=== PATIENT | male | born 2000 | race African-American/Black ===

== ENCOUNTER 2021-03-10 08:55 | Inpatient (IN) | payer OTHER ==
[2021-03-10 09:44] LABS: Basophils % (A) 1 %; Eosinophils # (A) 0.1 k/uL (0-0.7); Eosinophils % (A) 1 %; HCT 46.1 % (39.0-53.0); HGB 15.7 gm/dL (13.0-17.5); Lymphocytes # (A) 1.9 k/uL (1.0-4.8); Lymphocytes % (A) 28 %; MCH 30.8 pg (25.0-35.0); MCV 90.7 fL (80.0-100.0); Mean Platelet Volume 8.5; Monocytes # (A) 0.3 k/uL (0-1.0); Monocytes % (A) 5 %; Neutrophils # (A) 4.2 k/uL (1.3-7.7); Neutrophils % (A) 64 %; Platelet Count 222 k/uL (150-450); RBC 5.08 m/uL (4.30-5.90); RDW 12.3 % (11.5-15.5); WBC 6.6 k/uL (3.8-10.6)
[2021-03-10 10:02] LABS: Acetaminophen <10.0 ug/mL; African American GFR (CKD) >90 (>60 ml/min/1.73 sqM); Alcohol <10 mg/dL; Anion Gap 7 mmol/L; Blood Urea Nitrogen 18 mg/dL (9-20); Calcium 9.8 mg/dL (8.4-10.2); Carbon Dioxide 27 mmol/L (22-30); Chloride 103 mmol/L (98-107); Glucose 101 mg/dL (74-99); Magnesium 1.9 mg/dL (1.6-2.3); Non-African American GFR(CKD) >90 (>60 ml/min/1.73 sqM); Potassium 3.9 mmol/L (3.5-5.1); Salicylate <1.0 mg/dL; Sodium 137 mmol/L (137-145)
[2021-03-10] MEDS ORDERED: LORazepam 2 MG/ML INJ IV STA (12:47)
--- NOTE | 2021-03-10 13:42 | ED ---
General Adult HPI - General Chief complaint: Psychiatric Symptoms Stated complaint: mental health Time Seen by Provider: 03/10/21 09:15 Source: police, RN notes reviewed, old records reviewed Mode of arrival: ambulatory - History of Present Illness Initial comments: Patient is a 20-year-old male who presents emergency Department in police custody. He is brought to the emergency department concern for acute psychosis after he was arrested for stealing a car. He currently has no acute complaints but appears to be responding to internal stimuli. Is moving all 4 extremities. He is in handcuffs. Is alert and oriented times approximately 3. Denies any drug use. Refuses to answer most questions. Presents for psychiatric evaluation. Suicidal, homicidal attempts, ideation. Denies any visual or auditory hallucinations. - Related Data Home Medications Medication Instructions Recorded Confirmed No Known Home Medications 03/10/21 03/10/21 Allergies Allergy/AdvReac Type Severity Reaction Status Date / Time No Known Allergies Allergy Unverified 03/10/21 10:21 Review of Systems ROS Statement: Those systems with pertinent positive or pertinent negative responses have been documented in the HPI. Review of Systems: CONST: Denies fever EYES: Denies blurry vision ENT: Denies nasal congestion C/V: Denies Chest pain RESP: Denies shortness of breath GI: Denies abdominal pain : Denies dysuria SKIN: Denies rash. MSK: Denies joint pain. NEURO: Denies headache PSYCH: Denies suicidal and homicidal ideations/plans/attempts. Denies visual or auditory hallucinations. ROS Other: All systems not noted in ROS Statement are negative. Past Medical History Past Psychological History: Unable to Obtain Smoking Status: Unknown if ever smoked Past Alcohol Use History: Unable to Obtain General Exam - General Exam Comments Initial Comments: General: Appears in no acute distress. Appears to be responding to internal stimuli and is evasive of questions. HEAD: Normal with no signs of head trauma. EYES: PERRLA, EOMI, conjunctiva normal, no discharge. Pupils are 3 mm and equal bilaterally. ENT: Hearing grossly intact, normal oropharynx. RESPIRATORY: Clear breath sounds bilaterally. No wheezes, rales, or rhonchi. C/V: Regular rate and rhythm. S1 and S2 auscultated, no edema, peripheral pulses 2+ and intact throughout ABD: Abd is soft, nontender, nondistended EXT: Normal range of motion, no obvious deformity SKIN: No rashes or lesions observed on exposed skin. NEURO: Alert and oriented 4. No focal sensory strength deficits. GCS is 15. Course Vital Signs 03/10/21 09:08 Temperature 97.9 F Pulse Rate 90 Respiratory 18 Rate Blood Pressure 128/88 O2 Sat by Pulse 98 Oximetry Medical Decision Making - Medical Decision Making Based on the patient's presentation and physical exam, I'm concerned for what appears to be acute psychosis, however possible polysubstance abuse with unknown history of psychiatric illness. Patient is not forthcoming with information at this time. Therefore we will obtain basic laboratory studies as well as consult psychiatry for evaluation. ETOH level is 0. UDS and urinalysis are pending at this time. Patient was in agreement this plan. He remains in place custody at this time. Patient's laboratory studies are unremarkable including a negative alcohol level, salicylate level, Tylenol level. Labs otherwise unremarkable. Urine kristina dies are pending at this time. Patient is medically cleared for evaluation by psychiatry. Psychiatry evaluated the patient and requested that we obtain a CT head and addition to the urine studies which was ordered. Psychiatric certification was completed by myself. Patient's CT head showed no obvious acute intracranial process, however there was basilar artery density which could relate to dehydration or intracranial process. They recommended a stat CT angiogram. CT angiogram was completed and revealed no acute intracranial process. No significant stenosis or occlusion. [place] is unremarkable and within normal limits. Urinalysis showed no signs of acute ischemia. There is 1+ ketones any will be admission 1 L fluid bolus. UDS is remarkable for positive marijuana. Psychiatry was able to contact the patient's history, and there is concern for polysubstance abuse is likely, contributed to his acute mental status. At this time patient is medical cleared for psychiatric admission. Circumflex was completed by myself. Patient was admitted to psychiatry in stable cond ition. - Lab Data Result diagrams: 03/10/21 09:36 03/10/21 09:36 Lab Results 03/10/21 03/10/21 03/10/21 Range/Units 09:36 09:36 09:36 WBC 6.6 (3.8-10.6) k/uL RBC 5.08 (4.30-5.90) m/uL Hgb 15.7 (13.0-17.5) gm/dL Hct 46.1 (39.0-53.0) % MCV 90.7 (80.0-100.0) fL MCH 30.8 (25.0-35.0) pg MCHC 34.0 (31.0-37.0) g/dL RDW 12.3 (11.5-15.5) % Plt Count 222 (150-450) k/uL MPV 8.5 Neutrophils % 64 % Lymphocytes % 28 % Monocytes % 5 % Eosinophils % 1 % Basophils % 1 % Neutrophils # 4.2 (1.3-7.7) k/uL Lymphocytes # 1.9 (1.0-4.8) k/uL Monocytes # 0.3 (0-1.0) k/uL Eosinophils # 0.1 (0-0.7) k/uL Basophils # 0.0 (0-0.2) k/uL Sodium 137 (137-145) mmol/L Potassium 3.9 (3.5-5.1) mmol/L Chloride 103 (98-107) mmol/L Carbon Dioxide 27 (22-30) mmol/L Anion Gap 7 mmol/L BUN 18 (9-20) mg/dL Creatinine 0.92 (0.66-1.25) mg/dL Est GFR (CKD-EPI)AfAm >90 (>60 ml/min/1.73 sqM) Est GFR (CKD-EPI)NonAf >90 (>60 ml/min/1.73 sqM) Glucose 101 H (74-99) mg/dL Calcium 9.8 (8.4-10.2) mg/dL Magnesium 1.9 (1.6-2.3) mg/dL Urine Color Urine Appearance (Clear) Urine pH (5.0-8.0) Ur Specific [place] (1.001-1.035) Urine Protein (Negative) Urine Glucose (UA) (Negative) Urine Ketones (Negative) Urine Blood (Negative) Urine Nitrite (Negative) Urine Bilirubin (Negative) Urine Urobilinogen (<2.0) mg/dL Ur Leukocyte Esterase (Negative) Salicylates <1.0 mg/dL Urine Opiates Screen (NotDetected) Ur Oxycodone Screen (NotDetected) Urine Methadone Screen (NotDetected) Ur Propoxyphene Screen (NotDetected) Acetaminophen <10.0 ug/mL Ur Barbiturates Screen (NotDetected) U Tricyclic Antidepress (NotDetected) Ur Phencyclidine Scrn (NotDetected) Ur Amphetamines Screen (NotDetected) U Methamphetamines Scrn (NotDetected) U Benzodiazepines Scrn (NotDetected) Urine Cocaine Screen (NotDetected) U Marijuana (THC) Screen (NotDetected) Serum Alcohol <10 mg/dL Coronavirus (PCR) Not Detected (Not Detectd) 03/10/21 03/10/21 Range/Units 13:49 13:49 WBC (3.8-10.6) k/uL RBC (4.30-5.90) m/uL Hgb (13.0-17.5) gm/dL Hct (39.0-53.0) % MCV (80.0-100.0) fL MCH (25.0-35.0) pg MCHC (31.0-37.0) g/dL RDW (11.5-15.5) % Plt Count (150-450) k/uL MPV Neutrophils % % Lymphocytes % % Monocytes % % Eosinophils % % Basophils % % Neutrophils # (1.3-7.7) k/uL Lymphocytes # (1.0-4.8) k/uL Monocytes # (0-1.0) k/uL Eosinophils # (0-0.7) k/uL Basophils # (0-0.2) k/uL Sodium (137-145) mmol/L Potassium (3.5-5.1) mmol/L Chloride (98-107) mmol/L Carbon Dioxide (22-30) mmol/L Anion Gap mmol/L BUN (9-20) mg/dL Creatinine (0.66-1.25) mg/dL Est GFR (CKD-EPI)AfAm (>60 ml/min/1.73 sqM) Est GFR (CKD-EPI)NonAf (>60 ml/min/1.73 sqM) Glucose (74-99) mg/dL Calcium (8.4-10.2) mg/dL Magnesium (1.6-2.3) mg/dL Urine Color Yellow Urine Appearance Clear (Clear) Urine pH 6.5 (5.0-8.0) Ur Specific [place] 1.031 (1.001-1.035) Urine Protein Trace H (Negative) Urine Glucose (UA) Negative (Negative) Urine Ketones 1+ H (Negative) Urine Blood Negative (Negative) Urine Nitrite Negative (Negative) Urine Bilirubin Negative (Negative) Urine Urobilinogen 3.0 (<2.0) mg/dL Ur Leukocyte Esterase Negative (Negative) Salicylates mg/dL Urine Opiates Screen Not Detected (NotDetected) Ur Oxycodone Screen Not Detected (NotDetected) Urine Methadone Screen Not Detected (NotDetected) Ur Propoxyphene Screen Not Detected (NotDetected) Acetaminophen ug/mL Ur Barbiturates Screen Not Detected (NotDetected) U Tricyclic Antidepress Not Detected (NotDetected) Ur Phencyclidine Scrn Not Detected (NotDetected) Ur Amphetamines Screen Not Detected (NotDetected) U Methamphetamines Scrn Not Detected (NotDetected) U Benzodiazepines Scrn Not Detected (NotDetected) Urine Cocaine Screen Not Detected (NotDetected) U Marijuana (THC) Screen Detected H (NotDetected) Serum Alcohol mg/dL Coronavirus (PCR) (Not Detectd) Disposition Clinical Impression: Acute psychosis, Encounter for psychiatric assessment, Polysubstance abuse Disposition: ADMITTED IP TO THIS [facility] Condition: Stable Referrals: None,Stated [Primary Care Provider] - 1-2 days
[2021-03-10 14:14] LABS: Appearance,Urine Clear (Clear); Bilirubin,Urine Negative (Negative); Blood,Urine Negative (Negative); Color,Urine Yellow; Glucose,Urine (UA) Negative (Negative); Ketones,Urine 1+ (Negative); Leukocyte Esterase,Urine Negative (Negative); Nitrite,Urine Negative (Negative); PH, Urine 6.5 (5.0-8.0); Protein,Urine Trace (Negative); Specific Gravity,Urine 1.031 (1.001-1.035)
--- NOTE | 2021-03-10 14:19 | CT ---
EXAMINATION TYPE: CT brain wo con DATE OF EXAM: 03/10/2021 COMPARISON: None HISTORY: Altered mental status. CT DLP: 1145.4 mGycm. Automated Exposure Control for Dose Reduction was Utilized. TECHNIQUE: CT scan of the head is performed without contrast. FINDINGS: There is no acute intracranial hemorrhage, mass effect, or midline shift identified. The ventricles and sulci are within normal limits in size. The globes are intact and the visualized sin uses are clear. Cerebellar tonsils are low-lying in position. IMPRESSION: 1. No acute intracranial hemorrhage, mass effect, or midline shift is seen. Basilar artery somewhat d ense which could be related to dehydration. Recommend stat CTA [place] to exclude other etio logies. 2. Low-lying cerebellar tonsils correlate with MRI PRE.
[2021-03-10 14:42] LABS: Amphetamine Screen,Urine Not Detected (NotDetected); Barbiturate Screen,Urine Not Detected (NotDetected); Benzodiazepines Screen,Urine Not Detected (NotDetected); Cocaine Screen,Urine Not Detected (NotDetected); Methadone Screen, Urine Not Detected (NotDetected); Opiate Screen,Urine Not Detected (NotDetected); Oxycodone Screen, Urine Not Detected (NotDetected); Phencyclidine Screen,Urine Not Detected (NotDetected); Tricyclic Antidepressant,Urine Not Detected (NotDetected); Urn Cannabinoid Scrn Detected (NotDetected)
--- NOTE | 2021-03-10 15:46 | CT ---
EXAMINATION TYPE: CT angio head neck DATE OF EXAM: 03/10/2021 HISTORY: Altered mental status. COMPARISON: None. CT DLP: 526 mGycm. Automated Exposure Control for Dose Reduction was Utilized. TECHNIQUE: CTA scan of the head and neck are performed with IV Contrast, patient injected with 65ml mL of Isovue 370, axial images are obtained, coronal and sagittal reformatted images are reviewed. 3D reconstructed images are created on an independent workstation and reviewed. FINDINGS: Carotid/Vascular Structures: Normal 3 vessel origin from aortic arch without significant plaque or st enosis. Normal origin right common carotid artery from right brachiocephalic artery. No significant p laque or stenosis in common or internal carotid arteries bilaterally including at the level of the ca rotid bulbs. Patent external carotid arteries bilaterally without significant stenosis. There are codominant vertebral arteries patent to basilar junction. There is no significant focal radhames nosis or aneurysm in the posterior circulation. There are patent bilateral posterior communicating ar teries are thought present. Images in the anterior circulation show patent anterior communicating art carline. There is some tortuosity to the anterior cerebral arteries bilaterally. There is no significant aneurysm or stenosis. Other: Patient has very little intra-abdominal fat making evaluation of neck structures suboptimal. P atent airway is seen. Visualized lungs are clear. IMPRESSION: No significant stenosis in common or internal carotid arteries bilaterally. No significa nt stenosis or aneurysm at the level of the [place]. NASCET criteria was used in interpretation of this exam?
[2021-03-10] MEDS ORDERED: SODIUM CHLORIDE 0.9% 1,000 ML IV STA (15:58)
[2021-03-10] MEDS ORDERED: MAG HYDROX/AL HYDROX/SIMETH 30 ML CUP PO PRN (18:05)
[2021-03-10] MEDS ORDERED: MAGNESIUM HYDROXIDE 2,400 MG/10 ML CUP PO PRN (18:05)
[2021-03-10] MEDS ORDERED: ACETAMINOPHEN TAB 325 MG TAB PO PRN (18:05)
[2021-03-10] MEDS ORDERED: LORazepam 2 MG/ML INJ IM PRN (18:07)
[2021-03-10] MEDS ORDERED: HALOPERIDOL LACTATE 5 MG/ML 1 ML VIAL IM PRN (18:07)
[2021-03-10] MEDS: LORazepam 1 MG TAB PO PRN (21:38)
[2021-03-10] MEDS: haloperidoL 5 MG TAB PO PRN (21:38)
[2021-03-10] MEDS: chlorproMAZINE 25 MG/ML 2 ML AMP IM PRN (22:09)
[2021-03-10] MEDS: NICOTINE 14MG/24HR PATCH TRANSDERM SCH (22:09)
--- NOTE | 2021-03-10 23:39 | P.PN ---
Progress Note - Text Progress Note Date: 03/10/21 Attempted to see the patient at 2100. The patient was actively psychotic and inappropriate for evaluation.
[2021-03-11] MEDS: NICOTINE 14MG/24HR PATCH TRANSDERM SCH (08:57)
[2021-03-11] MEDS: chlorproMAZINE 25 MG/ML 2 ML AMP IM PRN ×2 (15:05→17:01)
[2021-03-11 15:54] LABS: Chol/HDL Ratio 1.99 Ratio; LDL Cholesterol,Calculated 63.8 mg/dL (0.0-131.0); VLDL Calculation 11.82 mg/dL (5.00-40.00)
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
[2021-03-11] MEDS: OLANZapine 10 MG TAB PO SCH ×3 (15:55→22:31)
--- NOTE | 2021-03-11 20:13 | P.HPIM ---
History of Present Illness H&P Date: 03/11/21 20-year-old male admitted to the hospital with acute psychosis Patient is still not very cooperative with the exam emotional crying and smiling at the same time Review of systems unable to get due to the current condition of the patient Constitutional: No acute distress, Eyes: Anicteric sclerae, moist conjunctiva, no lid-lag PERRLA ENMT: NC/AT Oropharynx clear, no erythema, exudates Neck: Supple, FROM, no masses, or JVD No carotid bruits No thyromegaly Lungs: Clear to auscultation Clear to percussion Normal respiratory effort, no accessory muscle use Cardiovascular: Heart regular in rate and rhythm, No murmurs, gallops, or rubs No peripheral edema Abdominal: Soft Nontender, no guarding, rebound or rigidity Abdomen moving with respiration Normoactive bowel sounds No hepatomegaly, No splenomegaly No palpable mass No abdominal wall hernia noted Skin: Normal temperature, tone, texture, turgor No induration No subcutaneous nodules No rash, lesions No ulcers Extremities: No digital cyanosis No clubbing Pedal pulses intact and symmetrical Radial pulses intact and symmetrical Normal gait and station No calf tenderness Psychiatric:Alert and oriented to person, place and time Appropriate affect Intact judgement Neuro: Muscles Strength 5/5 in all 4 extremities Sensation to light touch grossly present throughout Cranial nerves II-XII grossly intact No focal sensory deficits Assessment and plan Acute psychosis management as per psychiatry History of drug use Medically stable Past Medical History Past Psychological History: Unable to Obtain Smoking Status: Unknown if ever smoked Past Alcohol Use History: Unable to Obtain Medications and Allergies Home Medications Medication Instructions Recorded Confirmed Type No Known Home Medications 03/10/21 03/10/21 History Allergies Allergy/AdvReac Type Severity Reaction Status Date / Time No Known Allergies Allergy Unverified 03/10/21 10:21 Physical Exam Vitals: Vital Signs Temp Pulse Resp BP Pulse Ox 03/10/21 23:24 98.3 F 91 22 145/97 97 Results CBC & Chem 7: 03/10/21 09:36 03/10/21 09:36 Labs: Abnormal Lab Results - Last 24 Hours (Table) 03/10/21 03/10/21 Range/Units 09:36 09:36 Hemoglobin A1c 6.2 H (4.0-6.0) % HDL Cholesterol 76.40 H (40.00-60.00) mg/dL
[2021-03-12] MEDS: LORazepam 1 MG TAB PO PRN ×2 (08:00→20:14)
[2021-03-12] MEDS: NICOTINE 14MG/24HR PATCH TRANSDERM SCH (08:00)
[2021-03-12] MEDS: OLANZapine 10 MG TAB PO SCH ×2 (08:41→20:15)
[2021-03-12] MEDS ORDERED: LORazepam 2 MG/ML INJ IM PRN (13:15)
[2021-03-12] MEDS ORDERED: HALOPERIDOL LACTATE 5 MG/ML 1 ML VIAL IM PRN (13:30)
--- NOTE | 2021-03-12 13:37 | PN ---
PROGRESS NOTE DATE OF SERVICE: 03/12/2021. CHIEF COMPLAINT: The patient was unable to communicate and had disorganized and delusional thinking. INTERVAL HISTORY: Patient has been doing fair. He continued yesterday to be quite disorganized in his thoughts and behavior. He had not shown any signs of potentially aggressive behavior, though he did get into some periods of getting quite activated; at one point around 5 p.m. he got quite agitated. He was yelling at staff, saying staff were trying to slit his throat. He accepted some oral medications but then spit them out. He was given Thorazine 50 mg IM. After that, things seemed to quiet down for him for the rest of the evening. He slept fairly well last night. Today he has been up. He continues to be out on the unit in the day area. He does not attend groups. Mostly he wonders about. He spends quite a bit of time by the nursing station. He will wander back and forth. Sometimes he makes odd comments or says things repeatedly. He was seen at different times just sitting on the floor by the nursing area. He came to my office several times though did not engage in any productive conversation. He continues to be quite disorganized in his thoughts and not having much ability to comprehend his current situation. I made an effort to discuss his admission and the factors that got him to the hospital. Along with that I made an effort to encourage him to try medications, though he did not engage in that conversation at all and continues to decline taking his Zyprexa which has been ordered. MENTAL STATUS EXAM: Patient was quite restless. He had a staring gaze at times. He did not engage in any productive conversation. He would make random comments. He would respond to a very limited extent to questions I asked though would then veer off and make statements that were hard to follow what he was trying to communicate. His affect was intense, his mood somewhat elevated. He appeared to be moderately distressed. He shows continued delusional thinking. He makes no indication of thoughts of harm to self or others. He is oriented to self and his immediate situation. ASSESSMENT: I will continue the current diagnosis and treatment plan. We will continue to make efforts to support the patient. I also have encouraged the patient to consider taking medications while he is being closely observed on the unit. I made an effort to talk to the patient about the petition issue and the potential for court intervention. We will focus on stabilization and discharge planning. MMODL / IJN: [id number] /
[2021-03-12] MEDS: haloperidoL 5 MG TAB PO PRN (20:14)
[2021-03-13] MEDS: OLANZapine 10 MG TAB PO SCH ×2 (10:19→11:23)
[2021-03-13] MEDS: NICOTINE 14MG/24HR PATCH TRANSDERM SCH ×2 (10:19→11:23)
[2021-03-13] MEDS: haloperidoL 5 MG TAB PO SCH ×2 (12:47→19:48)
--- NOTE | 2021-03-13 12:59 | PN ---
PROGRESS NOTE DATE OF SERVICE: 03/13/2021. CHIEF COMPLAINT: The patient was unable to communicate and had disorganized and delusional thinking. INTERVAL HISTORY: The patient continues to have significant difficulties with thoughts and behavior. Yesterday he was out on the unit much of the time. He does not really interact with others. He frequently will approach staff as if he wants to discuss one thing or another, though then he will just make vague back and disconnected comments. He does not communicate anything that is meaningful. At 1430 hours, he was noted by staff to be having significant difficulties where he was disruptive with peers. He was showing inappropriate behavior. He was not responding to staff support to be in a safer situation. He received Haldol 10 mg IM with Ativan 1 mg IM. After that he seemed to be in a quieter manner and was able to respond to staff support. He did receive Haldol 5 mg p.o., which was a p.r.n. order. He had a quiet evening the rest of the day. He slept 7 hours last night. Today he has been up. He continues the same. He wanders about. He will respond to staff support at least to a minimal degree. He continues to talk and make random comments though does not communicate anything meaningfully. He continues to show indications of delusional thinking with thoughts of unreality and disorganized thinking. At times he appears to respond to internal stimuli. He continues to decline taking most oral medications in spite of staff encouraging him to do so. He has not shown any difficulties with the p.r.n. medications he has received. MENTAL STATUS EXAM: Patient gave fair eye contact. He did not respond to any questions directly. It is noted that he came into the office several times. He would stand momentarily and then walk out. When I would ask him what he wants to talk about or what concerns he had, he would not respond. At times he just made disorganized comments or random comments. His affect was blunted, his mood dysphoric. He seemed moderately distressed. He continues to show significant symptoms of thought disorder. He has not shown any indications of thoughts of harm toward self or others. He is oriented to immediate surroundings. ASSESSMENT: I will continue the current diagnosis and treatment plan. Patient continues to show significant psychotic symptoms. He has not been accepting Zyprexa. I will discontinue Zyprexa and initiate an order for Haldol 10 mg twice a day. We will continue to encourage the patient to take the medication. The patient also understands that there are some specific limitations on his functioning and behavior based on safety issues for himself and others. The patient understands that he may receive p.r.n. medications administered by staff in regard to safety. We will focus on stabilization and discharge planning. MIRANDA / KRYSTAL: [id number] /
[2021-03-13] MEDS: LORazepam 1 MG TAB PO PRN (19:49)
[2021-03-13] MEDS: OLANZapine 10 MG TAB PO PRN ×2 (22:10→22:12)
[2021-03-14] MEDS: haloperidoL 5 MG TAB PO SCH ×2 (08:08→21:01)
[2021-03-14] MEDS: NICOTINE 14MG/24HR PATCH TRANSDERM SCH (08:09)
[2021-03-14] MEDS: NICOTINE GUM (POLACRILEX) 2 MG GUM BUCCAL PRN ×2 (11:29→16:07)
--- NOTE | 2021-03-14 16:03 | PN ---
PROGRESS NOTE DATE OF SERVICE: 03/14/2021. CHIEF COMPLAINT: The patient was unable to communicate and had disorganized and delusional thinking. INTERVAL HISTORY: Patient continues the same. He was out on the unit yesterday. Some of the time he can get loud. He has been following staff support and redirection to a reasonable extent. He has been instructed on certain limits he has about movement on the unit because of the difficult behaviors and potential risks that he has posed to himself and others. His compliance with medications has been hit and miss. He declined taking a regularly ordered Haldol last night, though at 10 p.m. he did accept a p.r.n. Zyprexa. He had been declining taking Zyprexa before. This morning he did take his ordered Haldol. He presents in a fairly intense manner. He will make various statements that are disconnected or make no sense at all. He seems to maintain a buoyant mood more often than not. He tolerates his psychotropic medications that he does receive. He has not shown any issues with movement disorder. MENTAL STATUS EXAM: Patient was quite restless. He had an intense stare at times. He responded to a few questions, though his responses were not connected to the questions asked. His affect was somewhat intense. He has an elevated mood. He continues to show thought disorder symptoms. He makes no indication of thoughts of harm. He is oriented to circumstances and surroundings. ASSESSMENT: I will continue the current diagnosis and treatment plan. We will continue to encourage the patient to take his medications. As noted above, this has been a hit and miss proposition, though hopefully we can get him to take medications consistently enough to begin to ameliorate some of his psychotic and manic symptoms. We will focus on stabilization and discharge planning. MMASHWINL / IJN: [id number] /
[2021-03-15] MEDS: haloperidoL 5 MG TAB PO SCH ×2 (08:30→21:54)
[2021-03-15] MEDS: NICOTINE GUM (POLACRILEX) 2 MG GUM BUCCAL PRN (08:32)
[2021-03-15] MEDS: NICOTINE 14MG/24HR PATCH TRANSDERM SCH (08:33)
--- NOTE | 2021-03-15 20:31 | PN ---
PROGRESS NOTE DATE OF SERVICE: 03/15/2021. CHIEF COMPLAINT: The patient was unable to communicate and had disorganized and delusional thinking. INTERVAL HISTORY: Patient has been doing fairly well. He had a quiet day yesterday. He continues to be out on the unit, though it is noteworthy that yesterday he seemed to be in a much more quiet and calm way than on previous days. He will often sit on the floor by the nursing area. He did not attend groups yesterday. He does not really interact with others. He would approach me at different times if I was on the unit. He says that he slept well last night. Today he has been up. He continues the same. It is noted that there are times where he can stay quite focused on things that he is doing. He had been doing some reading. On previous days when I would walk by him, he predictably would start making some comment or conversation. Today he seemed to completely ignore me except when we had a formal discussion about his care and progress. His mood is a little more even. He continues to have some disorganized thoughts, though he is communicating much more clearly. He has been cooperative with care. He has been taking oral medications. He tolerates his medications. MENTAL STATUS: Patient sat with some restlessness. He gave fairly good eye contact. He answered a few questions directly. Mostly he made various comments that seemed random and disconnected. On the other hand, he presented himself in a more calm manner. He was not as intense as in previous days. His affect was in a reasonable range. His mood continues to be elevated, though considerably less so than it has been. He does not appear to be distressed. There is continued indication that he has some issues of thought disorder, mainly with disorganized thinking, but he has shown improvement in his thought process and thought content. He voiced no thoughts of harm. He was oriented to circumstances and surroundings. ASSESSMENT: I will continue the current diagnosis and treatment plan. I will continue psychotropic medications the same. It is critical that the patient has been accepting Haldol and seems to be showing response. It is noteworthy that on admission he appeared to be quite psychotic as a primary diagnosis. However, as his hospitalization has progressed, he has seemed to present with a fair amount of bipolar manic symptoms that are progressively receding. It is unclear what he is support system is and what community connections he has as far as living circumstances and so forth. We will need to coordinate in regard to these issues at discharge. We will continue to focus on stabilization and discharge planning. MMDIONI / KRYSTAL: [id number] /
[2021-03-16] MEDS: haloperidoL 5 MG TAB PO SCH (09:13)
[2021-03-16] MEDS: NICOTINE 14MG/24HR PATCH TRANSDERM SCH (09:14)
[2021-03-16] MEDS ORDERED: BENZTROPINE MESYLATE 1 MG TAB PO PRN (13:13)
--- NOTE | 2021-03-16 13:42 | P.PN ---
Progress Note - Text Progress Note Date: 03/16/21 Interval History: Patient was seen wandering the hallways and was directable and agreeable to sp eak with mortgage or loan underwriter in the office. Patient was responding to internal stimuli while in mortgage or loan underwriter's office. He was gazing around the room several times. He endorsed paranoia towards mortgage or loan underwriter and claims that he wanted to "pleads the fifth" when asked questions about how he was doing and why he came to the hospital. He answered "I don't know" to several questions. He did appear to be fairly suspicious. He didn't know today's date and where he was. He claimed that he is from [place] however did not state where. He claims that he is agreeable to take medications at this time. He states that he slept fairly. He denies going to groups at this time. He claims that he is showering and eating fairly. At this time patient denies any suicidal or homical ideations, intent or plan. Patient denies any auditory, visual hallucinations. Patient denies any side effects from the medications and has been compliant with meds. Mental Status Exam: General Appearance: Patient appears to be thin, tall, stated age is alert, suspicious and paranoid. Behavior: Patient is calmly seated without any agitated behavior. Suspicious. Responding to internal stimuli. Speech: Patient's speech is fluent and nonpressured. Monotone Mood/Affect: Mood is "okay", affect is congruent and constricted. Suicidality/Homicidality: Patient denies having any suicidal or homicidal ideation intent or plan. Perceptions: Patient denies any visual hallucinations and denies any auditory hallucinations Though content/process: Patient is paranoid. Refusing to cooperate with full interview and answer questions. Suspicious of mortgage or loan underwriter. Poor insight. Memory and concentration: AOX3, grossly intact for the purposes of this session Judgment and insight: Poor Assessment Psychosis unspecified Cannabis abuse Nicotine dependence Plan: -Patient continues to meet criteria for inpatient psychiatric admission for symptom stabilization and safety. Patient has not signed adult voluntary form and medication consent and was placed in patient's chart. -Medications: Continue with Haldol however increased to 12 mg twice a day for psychosis. Added Cogentin 1 mg twice a day when necessary for EPS prophylaxis. Added melatonin 5 mg daily at bedtime for sleep. -When necessary Ativan, Zyprexa and Haldol for agitation/aggression. -NRT - nicotine patch -SW on board for discharge planning. Encouraged the patient to participate in milieu. Referral with forestry biology specialist set for tomorrow. Patient is currently a retirement hold and will go back to retirement upon discharge.
[2021-03-16 18:09] VITALS: RESP 14
[2021-03-16] MEDS: MELATONIN 5 MG TABLET PO SCH (20:37)
[2021-03-17] MEDS: NICOTINE 14MG/24HR PATCH TRANSDERM SCH (09:28)
[2021-03-17] MEDS ORDERED: HALOPERIDOL DECANOATE 100 MG/ML 1 ML VIAL IM STA (11:23)
--- NOTE | 2021-03-17 11:29 | P.PN ---
Progress Note - Text Progress Note Date: 03/17/21 Interval History: Patient was seen wandering the hallways and was directable and agreeable to sp eak with business writer in the office. Patient was not responding to internal stimuli today in the office. He continues to be fairly concrete and guarded. He did not mention any overnight complaints and states that he slept better last night. He states that he plans to sign the deferral with the corporate associate attorney today. He asked questions about the court option and what that entails. Bean Sprout Grower also spoke with patient about the option of a long-acting injection which patient was agreeable to. He claims that he is able to sleep better last night. He states that he is not having any depression or anxiety today. He claimed that he is trying to "some lady guarded about what he is learning. He appears to be less suspicious and paranoid of business writer today. He claims that he is showering and eating fairly. At this time patient denies any suicidal or homical ideations, intent or plan. Patient denies any auditory, visual hallucinations. Patient denies any side effects from the medications and has been compliant with meds. Mental Status Exam: General Appearance: Patient appears to be thin, tall, stated age is alert, less suspicious and paranoid. Behavior: Patient is calmly seated without any agitated behavior. less Suspicious Speech: Patient's speech is fluent and nonpressured. Monotone Mood/Affect: Mood is "ok", affect is congruent and constricted. Suicidality/Homicidality: Patient denies having any suicidal or homicidal ideation intent or plan. Perceptions: Patient denies any visual hallucinations and denies any auditory hallucinations Though content/process: Patient is less paranoid. More cooperative today. He did not endorse any delusions. Memory and concentration: AOX3, grossly intact for the purposes of this session Judgment and insight: Poor, improving mildly Assessment Psychosis unspecified Cannabis abuse Nicotine dependence Plan: -Patient continues to meet criteria for inpatient psychiatric admission for symptom stabilization and safety. Patient has not signed adult voluntary form and medication consent and was placed in patient's chart. -Medications: Continue with Haldol 12 mg twice a day for psychosis. Patient is agreeable to receive Haldol D 100 mg IM today. Cogentin 1 mg twice a day when necessary for EPS prophylaxis. melatonin 5 mg daily at bedtime for sleep. -When necessary Ativan, Zyprexa and Haldol for agitation/aggression. -NRT - nicotine patch -SW on board for discharge planning. Encouraged the patient to participate in milieu. Referral with corporate associate attorney set for today. Patient is currently a residential hold and will go back to residential upon discharge. likely discharge in 1-2 days
[2021-03-17] MEDS: MELATONIN 5 MG TABLET PO SCH (21:17)
[2021-03-18] MEDS: NICOTINE 14MG/24HR PATCH TRANSDERM SCH (08:34)
[2021-03-18 09:39] VITALS: BP 130/89; PULSE 86; TEMP 96.8
--- NOTE | 2021-03-18 11:14 | P.PN ---
Progress Note - Text Progress Note Date: 03/18/21 Interval History: Patient was seen wandering the hallways and was directable and agreeable to sp eak with specifications writer in the office. Patient was not responding to internal stimuli today in the office once again and appeared to have improvement in his concentration. He continues to be fairly concrete however was more cooperative during the conversation. He claims that he is more trustworthy of people and is endorsing less paranoia today. He was not endorsing delusions today. He claims that he is feeling tired during the day and asked more questions about his medications. Programmer Business informed patient that he will need the second dose of Haldol D tomorrow. Patient was agreeable to this. He claims that he has only gone to some groups however was encouraged to go to more today. He claims that he is able to sleep better last night. He states that he is not having any depression or anxiety today. He appears to be less suspicious and paranoid of specifications writer today. He claims that he is showering and eating fairly. At this time patient denies any suicidal or homical ideations, intent or plan. Patient denies any auditory, visual hallucinations. Patient denies any side effects from the medications and has been compliant with meds. Mental Status Exam: General Appearance: Patient appears to be thin, tall, stated age is alert, less suspicious, improved hygiene and grooming. Behavior: Patient is calmly seated without any agitated behavior. Appears to be mildly lethargic today. Speech: Patient's speech is fluent and nonpressured. Monotone Mood/Affect: Mood is "a bit better", affect is congruent and constricted. Suicidality/Homicidality: Patient denies having any suicidal or homicidal ideation intent or plan. Perceptions: Patient denies any visual hallucinations and denies any auditory hallucinations Though content/process: Less paranoid today. More cooperative today. He did not endorse any delusions. Memory and concentration: AOX3, grossly intact for the purposes of this session Judgment and insight: Poor, improving mildly Assessment Psychosis unspecified Cannabis abuse Nicotine dependence Plan: -Patient continues to meet criteria for inpatient psychiatric admission for symptom stabilization and safety. Patient has not signed adult voluntary form and medication consent and was placed in patient's chart. -Medications: decrease Haldol 7 mg twice a day for psychosis. Patient received Haldol D 100 mg IM on 03/17 and will be getting second dose of Haldol D 50 mg IM tomorrow before d/c. Cogentin 1 mg twice a day when necessary for EPS prophylaxis. Melatonin 5 mg daily at bedtime for sleep. -When necessary Ativan, Zyprexa and Haldol for agitation/aggression. -NRT - nicotine patch -SW on board for discharge planning. Encouraged the patient to participate in milieu. patient deffered with disintegrator feeder and is agreeable to treatment. Patient is currently a [facility] hold and will go back to [facility] upon discharge, likely discharge tomorrow.
[2021-03-18] MEDS: MELATONIN 5 MG TABLET PO SCH (20:44)
[2021-03-19] MEDS: NICOTINE 14MG/24HR PATCH TRANSDERM SCH (08:52)
[2021-03-19] MEDS ORDERED: HALOPERIDOL DECANOATE 50 MG/ML 1 ML VIAL IM STA (10:21)
--- NOTE | 2021-03-19 11:19 | P.DS ---
Providers Date of admission: 03/10/21 17:56 Expected date of discharge: 03/19/21 Attending physician: Omar Willoughby MD Consults: 03/10/21 18:05 Consult Physician Routine Consulting Provider: Rogerio Physician Consult Reason/Comments: H&P and medical Do you want consulting provider notified?: Yes Primary care physician: Stated None - Discharge Diagnosis(es) (1) Unspecified psychosis Current Visit: Yes Status: Acute Priority: High (2) Cannabis use disorder, mild, abuse Current Visit: Yes Status: Acute Priority: Medium (3) Nicotine dependence Current Visit: Yes Status: Acute Priority: Low Hospital Course: Admission HPI: Admission note was completed by Dr Monroe "the patient is a 20-year-old male. There is no information regarding his living circumstances. He was referred from halfway. The patient was unable to communicate and had disorganized and delusional thinking. The patient was not able to provide any information. Apparently he had attempted to steal a van and was arrested. He has been in halfway for 5 days. In the EPS assessment it was indicated that he was "mute for the majority of his stay past 5 days" in halfway. When he was evaluated by EPS, he was noted to be hyperverbal with pressured speech, though he was not able to provide any reliable information. He made the following statement TPS "I was running from people. There is no information on me. I am missing person. I am from [facility]. I am didn't . I just want to go back to halfway. I don't have anywhere else to go. I got in a van, stole it and ran away. Admits was going to kill me because I snatched it." He made various delusional statements DPS, including paranoid statements. [facility] staff indicated that he had not eaten for several days. A CT was performed during his ED evaluation with no acute findings. No information was available in regard to past health issues. The patient came to the psychiatric unit he had very disorganized behavior. At one point he took a pen and held it in a threatening manner as if he was going to stab staff. He eventually lowered the pen. He had odd behavior such as laughing, randomly licking papers, making odd and delusional statements. At one point he exposed himself on the unit. He was observed on the unit to be pacing and making various paranoid and delusional statements. For the most part, his thoughts were very disorganized. At one point in the evening he got into a distressed state. He became very intense. He exposed himself to other patients in the lounge. The patient reported that he had swung the other patients, though no contact was made. He had made behaviors towards other patients that was felt to be intimidating. Mr. peres was called. After that the patient cooperated with staff requests. In the evening at 2138 hrs. he received Haldol 5 mg by mouth and Ativan 1 mg by mouth which she accepted. He spent the evening in his room and continued in his room this morning. When I talked to the patient, he was not able to provide any information. He made various statements, but most of his thoughts seemed random it was difficult to understand what he is trying to say. He did not make an effort to provide any history regarding recent events or any past issues. There was no psychotropic medications indicated that he may have been on. He is admitted for further evaluation." Hospital course: Upon admission to the unit patient was admitted involuntarily on a petition and certificate and a second certificate was completed and faxed with the courts. Patient ended up signing a deferral with the circulator and agreeing to treatment. Patient got along well with other patients on the unit and followed unit protocol. Patient was compliant with the medications and denied any side effects throughout hospital course. Patient was started on Haldol by mouth and titrated up to a dose of 12 mg twice a day for psychosis. At that time patient was given a first dose of Haldol D1 100 mg on 03/17 and given a second dose IM of 50 mg on day of discharge 03/19. Patient will be due for his next Haldol D long-acting injection 150 mg IM on 04/09/2021. Haldol by mouth will continue to be titrated down and discontinued. Patient is also started on Cogentin 1 mg twice a day when necessary for muscle spasm/EPS. Patient was also started on melatonin 5 mg daily at bedtime for sleep. Patient spoke of his stressors and engaged in therapy both group and individual. Patient was also seen by medical team for history and physical exam. Prior to admission to the mental health unit patient received a computed tomography scan of his head on 03/10 which showed no acute intracranial hemorrhage or mass effect or midline shift however did show basal artery being somewhat dense and may be related to dehydration and a low-lying cerebellar tonsils. Patient also had a CT [place] of his head and neck on 03/10 which showed no significant stenosis in the comment or internal carotid arteries bilaterally and no significant stenosis or aneurysms at the level of the [place]. Throughout the course of the hospitalization patient gradually improved with regards to mood, anxiety, sleep and returned back to their baseline level of functioning. Patient does appear to have chronically poor insight and judgment. On the day of discharge patient denied any suicidal or homicidal ideations intent or plan denied any auditory or visual hallucinations. Patient endorsed wanting to live for his future and to live. The patient denied any access to guns or weapons. Patient denied any paranoia and did not endorse any delusions. Patient does have a significant history of substance abuse and was counseled on abstaining from all substances including alcohol and marijuana. Patient was also counseled on the medications and need for regular compliance and was encouraged to follow-up with their outpatient appointment for mental health and also for primary care. fat pressroom worker did manage to speak with patient's sister to gather further collateral information. Patient will be discharged back to halfway today after receiving his second dose of Haldol D. Mental status exam: General Appearance: Patient appears to be tall, thin,stated age is alert, directable and cooperative. Patient is in no acute distress and has improved hygiene and grooming Behavior: Patient is calmly seated without any agitated behavior. Constricted at times Speech: Patient's speech is fluent and nonpressured. Monotone Mood/Affect: Patient reports their mood is "ok", affect is congruent and constricted Suicidality/Homicidality: Patient denies having any suicidal or homicidal ideation intent or plan. Perceptions: Patient denies any auditory or visual hallucinations. Though content/process: There is no evidence of any delusional thought content and thought process is concrete and not endorsing paranoia. Memory and concentration: AOX3, grossly intact for the purposes of this session. Can spell "WORLD" backwards correctly. Judgment and insight: chronically poor/limited, however has improved with guarded prognosis Impression: Psychosis unspecified, likely schizophrenia versus schizoaffective disorder Cannabis use disorder mild Nicotine dependence Plan: -Continue with discharge today as patient has improved and stabilized psychiatrically and is not currently an imminent threat to himself and/or others. Patient will remain at chronically elevated risk for harm to self and/or others due to his impulsivity and chronically poor insight and judgment -Continue medications: Decreased Haldol by mouth to 5 mg twice a day for psychosis for 4 more days then to be discontinued. Patient received a total of 150 mg IM of Haldol D and will be due for next Haldol D dose of 150 mg Im on 04/09/21. Cogentin 1 mg twice a day when necessary for EPS prophylaxis/muscle spasms, melatonin 5 mg daily at bedtime for sleep. -Patient was counseled on the need for medication compliance and appropriate follow-up at mental health and also primary care for medical issues. Patient verbalized understanding and agreed. -Social work to arrange for and conduct family meeting to ensure safety upon discharge and answer any questions/concerns. fat pressroom worker to also arrange for patient's discharge today back to halfway into environmental technical officer's custody. Social work also to arrange for patients follow up appointments with [facility] for psychiatric care along with follow up with primary care provider. -Patient counseled on abstaining from recreational drugs and marijuana and alcohol. Was informed/educated on the adverse effects on their physical and mental health. Patient verbally agreed and understood. -Patient was instructed to return to the hospital or seek immediate medical care if their psychiatric or medical symptoms do worsen or reoccur. Allergies Allergy/AdvReac Type Severity Reaction Status Date / Time No Known Allergies Allergy Unverified 03/15/21 16:31 Laboratory Results WBC 6.6 k/uL (3.8-10.6) 03/10/21 09:36 RBC 5.08 m/uL (4.30-5.90) 03/10/21 09:36 Hgb 15.7 gm/dL (13.0-17.5) 03/10/21 09:36 Hct 46.1 % (39.0-53.0) 03/10/21 09:36 MCV 90.7 fL (80.0-100.0) 03/10/21 09:36 MCH 30.8 pg (25.0-35.0) 03/10/21 09:36 MCHC 34.0 g/dL (31.0-37.0) 03/10/21 09:36 RDW 12.3 % (11.5-15.5) 03/10/21 09:36 Plt Count 222 k/uL (150-450) 03/10/21 09:36 MPV 8.5 03/10/21 09:36 Neutrophils % 64 % 03/10/21 09:36 Lymphocytes % 28 % 03/10/21 09:36 Monocytes % 5 % 03/10/21 09:36 Eosinophils % 1 % 03/10/21 09:36 Basophils % 1 % 03/10/21 09:36 Neutrophils # 4.2 k/uL (1.3-7.7) 03/10/21 09:36 Lymphocytes # 1.9 k/uL (1.0-4.8) 03/10/21 09:36 Monocytes # 0.3 k/uL (0-1.0) 03/10/21 09:36 Eosinophils # 0.1 k/uL (0-0.7) 03/10/21 09:36 Basophils # 0.0 k/uL (0-0.2) 03/10/21 09:36 Sodium 137 mmol/L (137-145) 03/10/21 09:36 Potassium 3.9 mmol/L (3.5-5.1) 03/10/21 09:36 Chloride 103 mmol/L (98-107) 03/10/21 09:36 Carbon Dioxide 27 mmol/L (22-30) 03/10/21 09:36 Anion Gap 7 mmol/L 03/10/21 09:36 BUN 18 mg/dL (9-20) 03/10/21 09:36 Creatinine 0.92 mg/dL (0.66-1.25) 03/10/21 09:36 Est GFR (CKD-EPI)AfAm >90 (>60 ml/min/1.73 sqM) 03/10/21 09:36 Est GFR (CKD-EPI)NonAf >90 (>60 ml/min/1.73 sqM) 03/10/21 09:36 Glucose 101 mg/dL (74-99) H 03/10/21 09:[address] Glu mg/dL 131 03/10/21 09:36 Hemoglobin A1c 6.2 % (4.0-6.0) H 03/10/21 09:36 Calcium 9.8 mg/dL (8.4-10.2) 03/10/21 09:36 Magnesium 1.9 mg/dL (1.6-2.3) 03/10/21 09:36 Triglycerides 59.10 mg/dL (0.00-149.00) 03/10/21 09:36 Cholesterol 152.00 mg/dL (0.00-200.00) 03/10/21 09:36 LDL Cholesterol, Calc 63.8 mg/dL (0.0-131.0) 03/10/21 09:36 VLDL Cholesterol, Calc 11.82 mg/dL (5.00-40.00) 03/10/21 09:36 HDL Cholesterol 76.40 mg/dL (40.00-60.00) H 03/10/21 09:36 Cholesterol/HDL Ratio 1.99 Ratio 03/10/21 09:36 TSH 0.855 uIU/mL (0.350-5.500) 03/10/21 09:36 Urine Color Yellow 03/10/21 13:49 Urine Appearance Clear (Clear) 03/10/21 13:49 Urine pH 6.5 (5.0-8.0) 03/10/21 13:49 Ur Specific [place]in[place] 1.031 (1.001-1.035) 03/10/21 13:49 Urine Protein Trace (Negative) H 03/10/21 13:49 Urine Glucose (UA) Negative (Negative) 03/10/21 13:49 Urine Ketones 1+ (Negative) H 03/10/21 13:49 Urine Blood Negative (Negative) 03/10/21 13:49 Urine Nitrite Negative (Negative) 03/10/21 13:49 Urine Bilirubin Negative (Negative) 03/10/21 13:49 Urine Urobilinogen 3.0 mg/dL (<2.0) 03/10/21 13:49 Ur Leukocyte Esterase Negative (Negative) 03/10/21 13:49 Salicylates <1.0 mg/dL 03/10/21 09:36 Urine Opiates Screen Not Detected (NotDetected) 03/10/21 13:49 Ur Oxycodone Screen Not Detected (NotDetected) 03/10/21 13:49 Urine Methadone Screen Not Detected (NotDetected) 03/10/21 13:49 Ur Propoxyphene Screen Not Detected (NotDetected) 03/10/21 13:49 Acetaminophen <10.0 ug/mL 03/10/21 09:36 Ur Barbiturates Screen Not Detected (NotDetected) 03/10/21 13:49 U Tricyclic Antidepress Not Detected (NotDetected) 03/10/21 13:49 Ur Phencyclidine Scrn Not Detected (NotDetected) 03/10/21 13:49 Ur Amphetamines Screen Not Detected (NotDetected) 03/10/21 13:49 U Methamphetamines Scrn Not Detected (NotDetected) 03/10/21 13:49 U Benzodiazepines Scrn Not Detected (NotDetected) 03/10/21 13:49 Urine Cocaine Screen Not Detected (NotDetected) 03/10/21 13:49 U Marijuana (THC) Screen Detected (NotDetected) H 03/10/21 13:49 Serum Alcohol <10 mg/dL 03/10/21 09:36 Coronavirus (PCR) Not Detected (Not Detectd) 03/10/21 09:36 Vital Signs Temp 96.8 F L 03/18/21 09:38 Pulse 86 03/18/21 09:38 Resp 14 03/16/21 18:09 BP 130/89 03/18/21 09:38 Pulse Ox 100 03/14/21 08:05 Patient Condition at Discharge: Stable Plan - Discharge Summary New Discharge Prescriptions: New haloperidoL [Haldol] 5 mg PO BID 4 Days tab Nicotine Gum (Polacrilex) [Nicorette] 2 mg BUCCAL Q4HR PRN 28 Days PRN Reason: Nicotine Cravings Benztropine Mesylate [Cogentin] 1 mg PO BID PRN 30 Days tab PRN Reason: muscle spasms Nicotine 14Mg/24Hr Patch [Habitrol] 1 patch TRANSDERM DAILY 14 Days patch Haloperidol Decanoate [Haldol D] 150 mg IM Q21D #1 each Melatonin 5 mg PO HS 30 Days tablet Discharge Medication List Benztropine Mesylate [Cogentin] 1 mg PO BID PRN 30 Days tab 03/19/21 [Rx] Haloperidol Decanoate [Haldol D] 150 mg IM Q21D #1 each 03/19/21 [Rx] Melatonin 5 mg PO HS 30 Days tablet 03/19/21 [Rx] Nicotine 14Mg/24Hr Patch [Habitrol] 1 patch TRANSDERM DAILY 14 Days patch 03/19/21 [Rx] Nicotine Gum (Polacrilex) [Nicorette] 2 mg BUCCAL Q4HR PRN 28 Days 03/19/21 [Rx] haloperidoL [Haldol] 5 mg PO BID 4 Days tab 03/19/21 [Rx] Follow up Appointment(s)/Referral(s): [facility] Week [facility] Patient Instructions/Handouts: Psychotic Disorder (DC) Activity/Diet/Wound Care/Special Instructions: Activity and diet as tolerated. Avoid the use of street drugs and alcohol. Take all medications as prescribed. When you are in need of refills on your medications please contact your medical provider and/or outpatient psychiatrist to have this done. Please go to scheduled outpatient appointment for aftercare treatment. If symptoms return or become worse, call the crisis line at and/or go to the nearest emergency room for evaluation Discharge Disposition: DC/TRANSFER COURT/LAW
[2021-03-19] MEDS ORDERED: haloperidoL 5 MG TAB PO SCH (21:00)
== END 2021-03-19 12:48 | DRG 885 ==
LOC: EC 08:55 → 3MHU 17:56
PROVIDERS: ADMIT Psychiatry & Neurology Psychiatry; ATTEND Psychiatry & Neurology Psychiatry
DX: F23 Brief psychotic disorder (principal); F12.10 Cannabis abuse, uncomplicated; F17.200 Nicotine dependence, unspecified, uncomplicated; F41.9 Anxiety disorder, unspecified; Z20.822 Contact with and (suspected) exposure to COVID-19
CPT/HCPCS: 36415; 70450; 70496; 70498; 80048; 80061; 80143; 80179; 80306; 80320; 81003; 83036; 83735; 84443; 85025; 87635; 96361; 96374; 99285